=== PATIENT | female | born 1995 | race African-American/Black ===

== ENCOUNTER 2017-01-16 23:57 | Emergency (ER) | payer MEDICAID ==
[~2017-01-16] VITALS: Ht 165.1 cm; Wt 82.0 kg
[2017-01-16 23:59] VITALS: BP 117/72
== END 2017-01-17 02:40 | disposition left against medical advice (07) ==
LOC: ER 23:57
DX: R42 Dizziness and giddiness (principal); Z53.21 Procedure and treatment not carried out due to patient leaving prior to being seen by health care provider
CPT/HCPCS: 81025

== ENCOUNTER 2018-11-02 23:39 | Emergency (ER) | payer SELFPAY ==
[~2018-11-02] VITALS: Ht 162.6 cm; Wt 94.0 kg
[2018-11-03 05:17] VITALS: BP 125/77
== END 2018-11-03 05:19 | disposition home or self-care (01) ==
LOC: ER 23:39
DX: R51 Headache (principal)
CPT/HCPCS: 99283